=== PATIENT | female | born 1965 | race American Indian/Alaskan Native ===

== ENCOUNTER 2017-04-29 04:06 | Emergency (ER) | payer OTHER ==
[2017-04-29 04:21] VITALS: O2SAT 98
--- NOTE | 2017-04-29 05:28 | C.PDOC ---
History Of Present Illness Pt c/o of pain to right thumb intermittent x 1week. Denies trauma. Pt states " thumb feels locked x tonihgt Time Seen by Provider: 04/29/17 04:27 Chief Complaint (Nursing): Finger,Hand,&Wrist History Per: Patient History/Exam Limitations: no limitations Current Symptoms Are (Timing): Still Present Severity: Mild Past Medical History Vital Signs: Last Vital Signs Temp 98.6 F 04/29/17 04:19 Pulse 86 04/29/17 04:19 Resp 18 04/29/17 04:19 BP 110/75 04/29/17 04:19 Pulse Ox 98 04/29/17 04:19 - Medical History PMH: Asthma Family History: States: Unknown Family Hx - Social History Hx Alcohol Use: Yes Hx Substance Use: No Review Of Systems Constitutional: Negative for: Fever Musculoskeletal: Positive for: Hand Pain (right thumb) Neurological: Negative for: Weakness, Numbness Physical Exam - Physical Exam Appears: Well, No Acute Distress Skin: Normal Color Head: Atraumatic Eye(s): bilateral: Normal Inspection, PERRL Extremity: Normal ROM, Tenderness (to right 1st MCP with mildly prominent right 1st MCP, no deformities, swelling, erythema, normal cap refill) Extremity: Bilateral: Normal Color And Temperature, Normal ROM Pulses: Left Radial: Normal, Right Radial: Normal Neurological/Psych: Oriented x3, Normal Motor, Normal Sensation Gait: Steady Extremity: Right: No Effort Against [place] ED Course And Treatment O2 Sat by Pulse Oximetry: 98 Pulse Ox Interpretation: Normal Progress Note: Motrin PO ordered. Pt advised to use a thumb splint/ May buy one in pharmacy. Follw up with PMD Disposition Counseled Patient/Family Regarding: Diagnosis, Need For Followup, Rx Given - Disposition Referrals: Shaik Hahn MD [Staff Provider] - Disposition: HOME/ ROUTINE Disposition Time: 05:29 Condition: STABLE Additional Instructions: Buuy a thumb spica Tqake motrin for pain Follow up with PMD Return to ER if worse Prescriptions: Ibuprofen [Motrin] 600 mg PO Q6H #24 tab Instructions: Arthralgia (ED) Forms: [email or web address] (Slovak) - Clinical Impression Clinical Impression: Pain of right thumb
[2017-04-29 05:41] VITALS: BP 110/76; PULSE 85; RESP 16; TEMP 98
== END 2017-04-29 05:40 | disposition home or self-care (01) ==
LOC: C.ER 04:06
DX: M79.644 Pain in right finger(s) (principal)

== ENCOUNTER 2017-07-16 17:13 | Emergency (ER) | payer OTHER ==
[2017-07-16 17:35] VITALS: BP 95/64; PULSE 92; TEMP 98.4; O2SAT 98
--- NOTE | 2017-07-16 18:28 | C.PDOC ---
History Of Present Illness 51 y/o female presents complaining of left side facial pain. Notes being seen by dentist and was told everything was normal. Pt continues to have the pain. No facial weakness, visual changes, trauma, injury, cough, or fever. Time Seen by Provider: 07/16/17 18:06 Chief Complaint (Nursing): Medical Clearance History Per: Patient History/Exam Limitations: no limitations Onset/Duration Of Symptoms: Days Current Symptoms Are (Timing): Still Present Reports Recently: Treated By A Physician Recent travel outside of the [place]: No Additional History Per: Patient Past Medical History Reviewed: Historical Data, Nursing Documentation, Vital Signs Vital Signs: Last Vital Signs Temp 98.4 F 07/16/17 17:30 Pulse 92 H 07/16/17 17:30 Resp 18 07/16/17 17:30 BP 95/64 L 07/16/17 17:30 Pulse Ox 98 07/16/17 18:34 - Medical History PMH: Asthma, Gastritis Family History: States: Unknown Family Hx - Social History Hx Alcohol Use: Yes Hx Substance Use: No - Immunization History Hx Tetanus Toxoid Vaccination: No Hx Influenza Vaccination: No Hx Pneumococcal Vaccination: No Review Of Systems Except As Marked, All Systems Reviewed And Found Negative. Constitutional: Negative for: Fever, Chills Eyes: Negative for: Vision Change ENT: Positive for: Other (left side facial pain) Cardiovascular: Negative for: Chest Pain, Palpitations Respiratory: Negative for: Cough, Shortness of Breath Gastrointestinal: Negative for: Nausea, Vomiting, Abdominal Pain Neurological: Negative for: Weakness, Numbness, Headache, Dizziness Physical Exam - Physical Exam Appears: Non-toxic, No Acute Distress Skin: Normal Color, Warm, Dry, No Rash Head: Atraumatic, Normacephalic, No Tenderness (no mastoid tenderness) Eye(s): bilateral: Normal Inspection, EOMI Ear(s): Bilateral: Normal Nose: Normal Oral Mucosa: Moist Tongue: Normal Appearing Lips: Normal Appearing Teeth: Normal Dentition Gingiva: Normal Appearing Throat: Normal, No Erythema, No Exudate, No Drooling Neck: Normal, Normal ROM, Supple Chest: Symmetrical Cardiovascular: Rhythm Regular, No Murmur Respiratory: Normal Breath Sounds, No Rales, No Rhonchi, No Wheezing Gastrointestinal/Abdominal: Soft, No Tenderness Extremity: Normal ROM Neurological/Psych: Oriented x3, Normal Speech, Normal Cognition, Normal Cranial Nerves (2-12 intact) Gait: Steady ED Course And Treatment O2 Sat by Pulse Oximetry: 98 (RA) Pulse Ox Interpretation: Normal Medical Decision Making Medical Decision Making: Impression: facial pain consider trigeminal neuralgia Instruct to follow up with neurologist, Dr. Mayank Godwin. Disposition Counseled Patient/Family Regarding: Diagnosis, Need For Followup - Disposition Disposition: HOME/ ROUTINE Disposition Time: 18:25 Condition: STABLE Additional Instructions: follow up with Dr. Godwin in 2 days call to make an appointment take medication as prescribed return to hospital if symptoms worsens or progress Prescriptions: Acetaminophen/Codeine [Tylenol/Codeine 300 MG/30 MG] 1 tab PO Q6H PRN #12 tab PRN Reason: Pain, Severe (8-10) Baclofen [Lioresal] 5 mg PO BID #16 tab Naproxen [Naprosyn] 500 mg PO BID PRN #16 tab PRN Reason: Pain, Moderate (4-7) Instructions: Trigeminal Neuralgia (ED) Forms: General Discharge Instructions, [facility] (Hungarian), Work Excuse Print Language: CHINESE - Clinical Impression Clinical Impression: Facial pain, acute - Scribe Statement The provider has reviewed the documentation as recorded by the Betitoibe Alon Gasca All medical record entries made by the Betitoibe were at my direction and personally dictated by me. I have reviewed the chart and agree that the record accurately reflects my personal performance of the history, physical exam, medical decision making, and the department course for this patient. I have also personally directed, reviewed, and agree with the discharge instructions and disposition.
[2017-07-16 18:49] VITALS: RESP 20
== END 2017-07-16 18:49 | disposition home or self-care (01) ==
LOC: C.ER 17:13
DX: R51 Headache (principal)

== ENCOUNTER 2018-08-26 08:47 | Emergency (ER) | payer OTHER ==
[2018-08-26 09:13] VITALS: RESP 18; O2SAT 97
--- NOTE | 2018-08-26 09:26 | C.PDOC ---
History Of Present Illness 52 y/o female presents to the ED complaining of worsening right knee pain for 2 days. Patient reports episodes of similar pain in the right knee, which worsen with weather change. Current pain is described as more intense than usual, associated with some swelling to the knee. Patient states pain worsens when going up and down stairs, and with weight bearing. She notes an occasional pop when walking. Denies any instability, numbness, tingling, or history of trauma. + Previous diagnosis of arthritis in knee. Patient reports mild relief with 800mg Motrin. Time Seen by Provider: 08/26/18 09:24 Chief Complaint (Nursing): Lower Extremity Problem/Injury History Per: Patient History/Exam Limitations: no limitations Onset/Duration Of Symptoms: Days (x2) Current Symptoms Are (Timing): Worse Past Medical History Reviewed: Historical Data, Nursing Documentation, Vital Signs Vital Signs: Last Vital Signs Temp 98.7 F 08/26/18 09:11 Pulse 98 H 08/26/18 09:11 Resp 18 08/26/18 09:11 BP 114/75 08/26/18 09:11 Pulse Ox 97 08/26/18 09:11 - Medical History PMH: Asthma, Diabetes, Gastritis Surgical History: No Surg Hx Family History: States: Unknown Family Hx - Social History Hx Alcohol Use: Yes Hx Substance Use: No - Immunization History Hx Tetanus Toxoid Vaccination: No Hx Influenza Vaccination: No Hx Pneumococcal Vaccination: No Review Of Systems Except As Marked, All Systems Reviewed And Found Negative. Musculoskeletal: Positive for: Leg Pain (right knee pain), Other (right knee swelling) Skin: Negative for: Rash, Lesions Neurological: Negative for: Weakness, Numbness, Incoordination Physical Exam - Physical Exam Appears: Non-toxic, No Acute Distress Skin: Warm, Dry Head: Atraumatic, Normacephalic Eye(s): bilateral: Normal Inspection, PERRL, EOMI Neck: Normal ROM Chest: Symmetrical Respiratory: No Accessory Muscle Use, Other (NARD) Extremity: Normal ROM (with AROM of the right knee without difficulty), No Calf Tenderness (or swelling or CORD), Capillary Refill (less than 2 sec), Swelling (Right lower extremity with mild swelling over the anterior knee), Other (No instability, + Pain with weight bearing) Pulses: Left Dorsalis Pedis: Normal, Right Dorsalis Pedis: Normal Neurological/Psych: Oriented x3, Normal Motor, Normal Sensation, Other (No focal deficits) ED Course And Treatment O2 Sat by Pulse Oximetry: 97 (RA) Pulse Ox Interpretation: Normal - Other Rad R KNEE X-Ray: Interpreted by Me (NEG) - CT Scan/US DOPPLER Other Rad Studies (CT/US): Radiology Report Reviewed (NEG) Medical Decision Making Medical Decision Making: Initial Plan: * X-ray right knee * Doppler US RLE Disposition Counseled Patient/Family Regarding: Studies Performed, Diagnosis, Need For Followup - Disposition Referrals: YOUR,PMD [Other] Ashli Toney MD [Staff Provider] - Disposition: HOME/ ROUTINE Disposition Time: 10:44 Condition: IMPROVED Instructions: Osteoarthritis (DC), Knee Immobilizer (DC) Forms: [facility] (Setswana), Work Excuse - Clinical Impression Clinical Impression: Knee pain, Knee swelling - Scribe Statement The provider has reviewed the documentation as recorded by the Betitoibfantasma Gonzalez Provider Attestation: All medical record entries made by the Betitoibe were at my direction and personally dictated by me. I have reviewed the chart and agree that the record accurately reflects my personal performance of the history, physical exam, medical decision making, and the department course for this patient. I have also personally directed, reviewed, and agree with the discharge instructions and disposition. Orthopedic Care Application Of:: Knee Immobilizer
[2018-08-26 11:05] VITALS: BP 110/65; PULSE 83; TEMP 98.4
--- NOTE | 2018-08-26 11:43 | RAD ---
Date of service: 08/26/2018 PROCEDURE: Right Knee Radiographs. HISTORY: PAIN COMPARISON: None. FINDINGS: BONES: No fracture seen. An ill-defined patchy radiolucency over the medial tibial plateau epiphysis and metaphyseal levels gross cortical interruption is suggested on series 1, image 1 JOINTS: Lateral tibial spine spurring. Probable medial femoral tibial joint space narrow present on this nonweightbearing view.. Patellofemoral mild concomitant joint-space narrowing JOINT EFFUSION: None. OTHER FINDINGS: None. IMPRESSION: Indeterminate ill-defined intra osseous lesion along medial tibial plateau epiphysis and metaphyseal level. No pathological fracture appreciated. Further evaluation recommended. An MRI of the right knee to assess for a focal marrow replacing lesion here is recommended. Comments: Study marked for PA review .
--- NOTE | 2018-08-26 13:20 | VASCLAB ---
Date of service: 08/26/2018 PROCEDURE: Right Lower Extremity Venous Duplex Exam. HISTORY: PAIN RO DVT PRIORS: None. TECHNIQUE: Right common femoral, femoral, popliteal and posterior tibial, peroneal and great saphenous veins were evaluated. Flow was assessed with color Doppler, compressibility, assessment of phasic flow and augmentation response. Report prepared by ELOY White FINDINGS: RIGHT: 1. Common Femoral Vein: 1.1. Compressibility - Fully compressible: Thrombus - None: Flow - Phasic: Augmentation -Normal: Reflux - None. 2. Femoral Vein: 2.1. Compressibility - Fully compressible: Thrombus - None: Flow - Phasic: Augmentation -Normal: Reflux - None. 3. Popliteal Vein: 3.1. Compressibility - Fully compressible: Thrombus - None: Flow - Phasic: Augmentation -Normal: Reflux - None. 4. Posterior Tibial Vein: 4.1. Compressibility - Fully compressible: Thrombus - None: Flow - Phasic: Augmentation -Normal: Reflux - None. 5. Peroneal Vein: 5.1. Compressibility - Fully compressible: Thrombus - None: Flow - Phasic: Augmentation -Normal: Reflux - None. 6. Great Saphenous Vein: 6.1. Compressibility - Fully compressible: Thrombus -None: Flow - Phasic: Augmentation - Normal: Reflux - None. OTHER FINDINGS: IMPRESSION: No evidence of deep or superficial vein thrombosis of the right lower extremity with excellent venous flow. Normal valve function noted of the right side. Normal venous flow noted in the left common femoral vein.
== END 2018-08-26 11:20 | disposition home or self-care (01) ==
LOC: C.ER 08:47
DX: M25.561 Pain in right knee (principal); M79.89 Other specified soft tissue disorders; E11.9 Type 2 diabetes mellitus without complications

== ENCOUNTER 2018-10-29 08:09 | Day surgery (SDC) | payer OTHER ==
[2018-10-28 14:54] VITALS: BMI 25.4
[2018-10-29] MEDS ORDERED: Propofol 10 mg/ml Inj (20 ML) ONE (09:53)
[2018-10-29 11:17] VITALS: O2SAT 100
[2018-10-29 13:44] VITALS: BP 112/69; PULSE 69; RESP 21; TEMP 98.7
== END 2018-10-29 11:40 | disposition home or self-care (01) ==
LOC: C.ENDO 08:09
PROVIDERS: ATTEND Internal Medicine Gastroenterology
DX: Z12.11 Encounter for screening for malignant neoplasm of colon (principal); D12.2 Benign neoplasm of ascending colon; K64.0 First degree hemorrhoids; F17.210 Nicotine dependence, cigarettes, uncomplicated
CPT/HCPCS: 45385; 84703; 88305; J2704